=== PATIENT | female | born 1980 ===

== ENCOUNTER 2022-12-22 15:56 | Inpatient (IN) | payer OTHER ==
[~2022-12-22] VITALS: Ht 167.6 cm; Wt 95.3 kg
[2022-12-29] MEDS ORDERED: NEURONTIN600 MG PO (06:54)
[2022-12-29] MEDS ORDERED: SIMETHICONE125 M1 PO (06:54)
[2022-12-29] MEDS ORDERED: IBUPROFEN800 MG PO (06:54)
[2022-12-29] MEDS ORDERED: POLY119PG PO (06:54)
== END 2022-12-29 10:25 | disposition home or self-care (01) | DRG 743 ==
LOC: ADM 12-23 10:45 → O/R 12-27 05:26 → OB/GYN 12-27 05:26 → SURH 12-27 10:45 → CIR.AMB 12-27 10:45 → EDSTATUS 12-27 10:45 → SURH 12-27 11:00 → OB/GYN 12-29 10:25
PROVIDERS: ADMIT Obstetrics & Gynecology; ATTEND Obstetrics & Gynecology
PROC: 0UT70ZZ Resection of Bilateral Fallopian Tubes, Open Approach (ICD-10-PCS; 2022-12-27)
PROC: 0UT10ZZ Resection of Left Ovary, Open Approach (ICD-10-PCS; 2022-12-27)
PROC: 0UT90ZZ Resection of Uterus, Open Approach (ICD-10-PCS; principal; 2022-12-27 11:00)
DX: D25.1 Intramural leiomyoma of uterus (principal); D25.2 Subserosal leiomyoma of uterus; N72 Inflammatory disease of cervix uteri; Z20.822 Contact with and (suspected) exposure to COVID-19; N83.02 Follicular cyst of left ovary